=== PATIENT | male | born 1945 | race Caucasian/White ===

== ENCOUNTER → 2019-11-17 13:33 | Outpatient (CLI) | payer MEDICARE, OTHER | END | disposition home or self-care (01) | LOC: D.CT 13:33 | PROVIDERS: ATTEND Family Medicine | DX: R10.11 Right upper quadrant pain (principal) ==

== ENCOUNTER → 2019-12-11 10:39 | Outpatient (CLI) | payer MEDICARE, OTHER | END | disposition home or self-care (01) | LOC: D.US 10:39 | PROVIDERS: ATTEND Internal Medicine Cardiovascular Disease | DX: I65.23 Occlusion and stenosis of bilateral carotid arteries (principal) ==

== ENCOUNTER → 2019-12-17 08:43 | Outpatient (CLI) | payer MEDICARE, OTHER | END | disposition home or self-care (01) | LOC: D.HCCARDIO 08:43 | PROVIDERS: ATTEND Internal Medicine Cardiovascular Disease | DX: I25.10 Atherosclerotic heart disease of native coronary artery without angina pectoris (principal) ==

== ENCOUNTER 2020-01-07 11:09 | Day surgery (SDC) | payer MEDICARE, OTHER ==
[~2020-01-07] VITALS: Ht 193 cm; Wt 87.8 kg
--- NOTE | ~2020-01-07 | HEMODYNAMI ---
PATIENT:JOSE MELISSA JR MEDICAL RECORD: [id number] : 47 LOCATION:DMEÑO ADMISSION DATE: 01/07/20 Generatedon:01/07/202013:32 Patient name: JOSE MELISSA Patient #: [id number] SSN: [id number] : 1945 Date of study: 01/07/2020 Page: Of Hemodynamic Procedure Report Patient Data Patient Demographics Procedure consent was obtained First Name: JOSE Gender: Male Last Name: BELÉN Suffix: [facility] Initial: ARTHUR : 1945 Patient #: [id number] Age: 74 year(s) Race: SSN: [id number] Additional ID: [id number] Contact details Address: [address] [place] [address] State: [place] City: [place] Zip code: [address] Past Medical History Allergies: No known allergies Admission Admission Data Admission Date: 01/07/2020 Admission Time: 11:09 Arrival Date: 01/07/2020 Arrival Time: 13:00 Admit Source: Other Insurance Payor: Medicare [facility] #: [id number] Height (in.): 75.98 BSA: 2.18 (m2) Height (cm.): 193 BMI: 23.36 (kg/m2) Weight (lbs.): 191.8 Weight (kg.): 87 Lab Results Lab Result Date: 01/07/2020 Lab Result Time: 0:00 Biochemistry Name Units Result Min Max BUN mg/dl 16 --(---*)-- 7 18 Creatinine mg/dl 1.3 --(---*)-- 0.6 1.3 eGFR ml/min 57 *-(----)-- 90 120 NONAFRICAN CBC Name Units Result Min Max Hematocrit % 41.5 -*(----)-- 42 54 Hemoglobin g/dl 13.5 --(*---)-- 13.5 17.5 Procedure Procedure Types Cath Procedure Diagnostic Procedure [facility] w/Coronaries Sedation Charges Moderate Sedation 10-24 minutes Procedure Description Procedure Date Procedure Date: 01/07/2020 Procedure Start Time: 13:18 Procedure End Time: 13:28 Procedure Staff Name Function Philipp Roberts MD Performing Physician Tena Galvan RT Monitor Maisha Nunez RT Scrub Ollie Davis RN Nurse Procedure Data Cath Procedure Fluoroscopy Diagnostic fluoroscopy Total fluoroscopy Time: 1.6 time: 1.6 min min Diagnostic fluoroscopy Total fluoroscopy dose: 505 dose: 505 mGy mGy Contrast Material Contrast Material Type Amount (ml) Isovue 300 49 Entry Location Entry Primary Successful Side Size Upsize Upsize Entry Closure [place] ccessful Closure Location (Fr) 1 (Fr) 2 (Fr) Remarks Device Remarks Radial Right 6 Fr Mechanical artery Short Compression Estimated blood loss: 5 ml Diagnostic catheters Device Type Used For End Catheter Placement DIAGNOSTIC [place] 110cm 5 Multi-vessel Fr catheter ([id number]) Angiography Procedure Complications No complications Procedure Medications Medication Administration Route Dosage Oxygen etCO2 Nasal cannula 2 l/min Heparin Flush Bag added to field 2 bags (1000units/500ml NS) 0.9% NaCl I.V. 100 ml/hr Lidocaine 2% added to field 20 Radial Cocktail added to field 1 syringe (Verapamil 2mg/Nitro 400mcg/Heparin 1500units) Fentanyl I.V. 50 mcg Versed I.V. 1 mg Fentanyl I.V. 50 mcg Versed I.V. 1 mg Hemodynamics Rest BSA: 2.18 (m2) HGB: 13.5 (g/dl) O2 Consumption: Estimated: 273.65 (ml/min) O2 Co nsumption indexed: Estimated:125.53 (ml/min/m) Heart Rate: 97 (bpm) Pressure Samples Time Site Value (mmHg) Purpose Heart Use Rate(bpm) 13:21 LV 36/-4,-6 Snapshot 66 Gradients Valve Time Site Site Mean SEP/DFP Peak To Heart Use 1 2 (mmHg) (sec/min) Peak Rate (mmHg) (bpm) Aortic 13:22 LV AO 79 Snapshots Pre Cath Intra NCS Post Cath Vital Signs Time Heart Resp SPO2 etCO2 NIBP (mmHg) Rhythm Pain Sedation Rate (ipm) (%) (mmHg) Status Level (bpm) 13:07:13 99 16 99 0 209/113(147) NSR 0 (11) 10(A) , No pain 13:11:41 86 16 100 33 190/99(152) NSR 0 (11) 10(A) , No pain 13:16:11 73 16 100 0 165/75(136) NSR 0 (11) 9(A) , No pain 13:20:40 88 17 100 9.7 158/53(132) NSR 0 (11) 9(A) , No pain 13:24:58 67 16 100 0 77/42(55) NSR 0 (11) 9(A) , No pain 13:28:53 68 16 100 0 87/52(72) NSR 0 (11) 9(A) , No pain Medications Time Medication Route Dose Verified Delivered Reason Notes E ffectiveness by by 13:09:22 Oxygen etCO2 2 l/min Philipp Ollie Per Nasal Armando Davis RN physician cannula 13:09:30 Heparin Flush added 2 bags Philipp Ollie used for Bag to Armando Davis domestic technician (1000units/500ml field NS) 13:09:38 0.9% NaCl I.V. 100 Philipp Ollie Per ml/hr Armando Davis RN physician 13:09:53 Lidocaine 2% added 20ml Philipp Ollie for local to vial Armando Davis RN anesthetic field 13:10:04 Radial Cocktail added 1 Philipp Ollie used for (Verapamil to syringe Armando Davis domestic technician 2mg/Nitro field 400mcg/Heparin 1500units) 13:12:05 Fentanyl I.V. 50 mcg Philipp Ollie for Armando Davis RN sedation 13:12:11 Versed I.V. 1 mg Philipp Ollie for Armando Davis RN sedation 13:22:44 Fentanyl I.V. 50 mcg Philipp Ollie for Armando Davis RN sedation 13:22:47 Versed I.V. 1 mg Philipp Ollie for Armando Davis RN sedation Procedure Log Time Note 12:31:42 Informed consent obtained and on chart 12:33:30 Arrival Date: 01/07/2020 1:00:00 PM 12:33:56 Admit Source: Other 12:33:59 Insurance Payor : Medicare 12:43:04 Patient Height : 75.98 inches 12:43:08 Patient Weight : 191.8 lbs 12:43:17 Diagnostic Cath Status : Elective 12:43:38 Procedure Status Elective Heart Cath (OP). 12:43:42 Tena Galvan RT(R) sent for patient. Start room use. 12:45:39 Time tracking: Regular hours (M-F 7:00 - 5:00) 12:45:44 Plan of Care:Hemodynamics will remain stable., Cardiac rhythm will remain stable., Comfort level will be maintained., Respiratory function will remain adequate., Patient/ family verbilizes understanding of procedure., Procedure tolerated without complication., Recovers from procedure without complications.. 12:57:07 Patient received from Pre/Post Procedure Room to CCL 2 Alert and oriented. Tansferred to table in Supine position. 12:57:08 Warm blankets applied, and ammon hugger turned on for patient comfort. 12:57:08 Correct patient and procedure confirmed by team. 12:57:08 ECG and BP/O2 sat monitors applied to patient. 13:02:37 Full Disclosure recording started 13:02:51 H&P Date Dictated: 12/10/2019 Within 30 days and on chart., H&P Addendum completed by physician on day of procedure. (MUST COMPLETE FOR ALL OUTPATIENTS). 13:02:52 Pre-procedure instructions explained to patient. 13:02:52 Pre-op teaching completed and patient verbalized understanding. 13:02:53 Family in patients room. 13:02:55 Patient NPO since Midnight. 13:03:03 Patient allergic to No known allergies 13:03:04 Is patient on blood thinner?Yes 13:03:07 ACC The patient was administered the following blood thiners within the last 24 hours: ACCPlavix 13:03:08 Is the patient allergic to Iodine/contrast media? No. 13:03:10 Patient diabetic? No. 13:03:17 IV patent on arrival in right antecubital with 0.9% NaCl at [facility]. 13:03:21 Previous problem with sedation/anesthesia? No ? 13:03:22 Snore? Yes 13:03:22 Sleep apnea? No 13:03:24 Deviated septum? No 13:03:25 Opens mouth fully? Yes 13:03:26 Sticks out tongue? Yes 13:03:27 Airway obstruction? No ? 13:03:30 Dentures? Yes TIGHT 13:04:04 Pre procedure: right dorsailis pedis pulse 1+ Palpable, but thready & weak; easily obliterated 13:04:07 Modified Umair's test Ulnar < 7 seconds 13:04:10 Patient pain scale 0/10 ?. 13:04:57 Right Radial & Right Groin area was prepped with chlora-prep and draped in sterile fashion 13:04:58 Alarms reviewed by R. N. 13:04:59 Sharps counted by scrub and verified by R.N. 13:05:03 Vital chart was started 13:05:07 Baseline sample Acquired. 13:05:14 Rhythm: sinus rhythm 13::40 Lab Result : BUN 16 mg/dl ::40 Lab Result : Creatinine 1.3 mg/dl ::40 Lab Result : eGFR NONAFRICAN 57 ml/min 13::40 Lab Result : Hemoglobin 13.5 g/dl 13::40 Lab Result : Hematocrit 41.5 % 13::43 Lab results completed and on chart. 13:09:22 Oxygen 2 l/min etCO2 Nasal cannula was administered by Ollie Davis RN; Per physician; Verbal order read back and verified. 13:09:30 Heparin Flush Bag (1000units/500ml NS) 2 bags added to field was administered by Ollie Davis RN; used for procedure; Verbal order read back and verified. 13:09:31 Physician arrived 13:09:31 Physician arrived 13::32 --------ALL STOP TIME OUT------ 13::32 Final Timeout: patient, procedure, and site verified with staff and physician. All members of the team are in agreement. 13:09:35 Right Radial & Right Groin site verified by team. 13:09:38 0.9% NaCl 100 ml/hr I.V. was administered by Ollie Davis RN; Per physician; Verbal order read back and verified. 13:09:38 Fire Safety Assessment: A--An alcohol-based skin anteseptic being used preoperatively., C--Open oxygen or nitrous oxide is being used., D--An ESU, laser, or fiber-optic light is being used. 13:09:42 Physical assessment completed. ASA score P 2 - A patient with mild systemic disease as per Philipp Roberts MD. 13:09:52 Sedation plan: IV Moderate Sedation Medication:Versed, Fentanyl 13:09:53 Lidocaine 2% 20ml vial added to field was administered by Ollie Davis RN; for local anesthetic; Verbal order read back and verified. 13:10:04 Radial Cocktail (Verapamil 2mg/Nitro 400mcg/Heparin 1500units) 1 syringe added to field was administered by Ollie Davis RN; used for procedure; Verbal order read back and verified. 13:10:53 3a) 45-59 Moderately reduced kidney function. 13:11:12 Maximum allowable contrast dose (3.7 X eGFR X 0.75)158 ml. 13:12:05 Fentanyl 50 mcg I.V. was administered by Ollie Davis RN; for sedation; Verbal order read back and verified. 13:12:11 Versed 1 mg I.V. was administered by Ollie Davis RN; for sedation; Verbal order read back and verified. 13:17:46 Use device set Radial Dx or PCI 13:17:48 ACIST Syringe (29667) opened to sterile field. 13:17:48 Medline Cath Pack ([id number]) opened to sterile field. 13:17:48 Bag Decanter (2002) opened to sterile field. 13:17:49 ACIST Hand Control (54433) opened to sterile field. 13:17:49 ACIST Manifold (19265) opened to sterile field. 13:17:50 Tegaderm 4 x 4 (1626W) opened to sterile field. 13:17:50 MBrace Wrist Support ([id number]) opened to sterile field. 13:17:51 NEEDLE Cook 21G 4cm Radial (Q72983) opened to sterile field. 13:17:53 SHEATH 6FR RAIN (0122584) opened to sterile field. 13:17:53 EMERALD Guide Wire (694-538) opened to sterile field. 13:17:57 Procedure started. 13:18:01 Local anesthetic to right radial artery with Lidocaine 2% by Philipp Roberts MD.INITIAL ACCESS ONLY 13:18:11 A 6 Fr Short sheath was inserted into the Right Radial artery 13:20:34 A DIAGNOSTIC [place] 110cm 5 Fr catheter (937758) was advanced over the wire and used for Multi-vessel Angiography. 13:21:22 LV hemodynamics recorded. 13::23 LV gram done using BURK 13::27 Injector settings: Ml/sec: 5, Volume: 15, 13::47 EF : 60 % 13::44 Fentanyl 50 mcg I.V. was administered by Ollie Davis RN; for sedation; Verbal order read back and verified. 13::47 Versed 1 mg I.V. was administered by Ollie Davis RN; for sedation; Verbal order read back and verified. 13:23:09 LCA angiography performed. 13::45 Injector settings: Ml/sec: 3, Volume: 6, 13:25:11 RCA angiography performed. 13:25:14 Injector settings: Ml/sec: 3, Volume: 6, 13:25:24 Catheter removed. 13:25:35 ZEPHYR REGULAR TR BAND (288948) opened to sterile field. 13:26:18 Sheath removed intact; hemostasis achieved with Mechanical Compression to the Right Radial artery. 13::22 Procedure ended.(Physican Out) 13:26:54 Fluoroscopy time 01.60 minutes. 13::58 Flurop Dose total: 505 13:26:58 Fluoroscopy dose: 505 mGy 13:27:09 Dose Area Product 25473 mGy/cm. 13:27:29 Contrast amount:Isovue 300 49ml. 13:27:51 Maximum allowable dose exceeded? No. 13:27:52 Sharps counted by scrub and verified by R.N. 13:27:55 [place] band inflated with 10cc of air. 13:27:56 Insertion/operative site no bleeding no hematoma. 13:28:03 Post right radial artery:stable 13:28:04 Post Procedure Pulses reassessed and unchanged 13:28:06 Post procedure rhythm: unchanged. 13:28:09 Estimated blood loss: 5 ml 13:28:10 Post procedure instruction explained to patient.Patient verbalizes understanding. 13:28:11 Patient needs reinforcement of post procedure teaching. 13:28:28 Procedure type changed to Cath procedure, Diagnostic procedure, LHC, LHC w/Coronaries, Sedation Charges, Moderate Sedation 10-24 minutes 13:28:29 Procedure and supply charges have been captured, reviewed, submitted and are correct. 13:28:34 Procedure Complication : No complications 13:28:36 Vital chart was stopped 13:28:38 [facility] Findings: MVD- CABG consult 13:28:40 Operative report dictated upon procedure completion. 13:28:40 See physician's report for complete and final results. 13:28:42 Report given to Pre/Post Procedure Room. 13:28:45 Patient transfered to Pre/Post Procedure Room with Stretcher. 13:28:49 Procedure ended. 13:28:49 Full Disclosure recording stopped 13:28:55 End room use (Document Last) 13:31:13 End room use (Document Last) 13:31:38 End room use (Document Last) Device Usage Item Name Manufacture Quantity Catalog Hospital Part Current Minima l Lot# / Number Charge Number Stock Stock Serial# Code ACIST Acist 1 03692 462256 [id number] 201660 20 Syringe Medical (56334) Systems Inc Medline Medline 1 [id number] 07468 047574 5 Cath Pack ([id number]) Bag Microtek 1 2001S 711070 43341 [id number] 5 Decanter Medical Inc. () ACIST Hand Acist 1 81412 239074 923420 834627 5 Control Medical (82466) Systems Inc ACIST Acist 1 89888 460579 539650 767827 5 Manifold Medical (19562) Systems Inc Tegaderm 4 3M 1 1626W 610404 590237 478478 5 x 4 (1626W) MBrace Advanced 1 140-0250-00 492500 16007 660588 5 Wrist Vascular Support Dynamics ([id number]) NEEDLE [employer] Medical 1 O40000 003126 681898 836091 5 21G 4cm Radial (G62631) SHEATH 6FR Cardinal 1 1554330 246208 1364841 389321 5 [facility] (9774256) EMERALD Cardinal 1 502-874 280715 723524 889627 5 Guide Wire Health (580-394) DIAGNOSTIC Terumo 1 40-1331 362335 744585 343539 5 [place] 110cm 5 Fr catheter (131918) ZEPHYR Cardinal 1 664477 980696 [id number] 109403 5 REGULAR TR Health BAND (258231) Signature Audit [place] Stage Time Signature Unsigned Intra-Procedure 01/07/2020 Tena Galvan 1:31:13 PM RT(R) Intra-Procedure 01/07/2020 Ollie Davis 1:31:38 PM RN Intra-Procedure 01/07/2020 Philipp Roberts MD 1:32:02 PM Signatures Performing Physician : Signature : Philipp Roberts MD Date : Time : Monitor : Tena Galvan RT Signature : Date : Time : Nurse : Ollie Davis RN Signature : Date : Time : [facility] [address] [place] [address]
[2020-01-07] MEDS ORDERED: PRAVACHOL40 MG PO (11:50)
[2020-01-07] MEDS ORDERED: PRAVASTATIN SOD10 MG PO (11:50)
[2020-01-07] MEDS ORDERED: PLAVIX75 MG PO (11:50)
[2020-01-07] MEDS ORDERED: PEPCID AC20 MG PO (11:51)
[2020-01-07 12:10] VITALS: BP 209/110; Ht 193 cm; Wt 87.8 kg
[2020-01-07 12:23] LABS: BASOPHILS 0.9 % (0-2); EOSINOPHILS 7.7 % (0-7); HEMATOCRIT 41.5 % (42.0-54.0); HEMOGLOBIN 13.5 g/dL (13.5-17.5); IMMATURE GRANULOCYTES 0.2 % (0-5); MCH 31.6 pg (26.0-34.0); MCHC 32.5 g/dL (31.0-37.0); MCV 97.2 fL (80.0-100.0); MEAN PLATELET VOLUME 9.6 fL (7.4-10.4); MONOCYTES 8.9 % (2-11); NEUTROPHILS 49.3 % (40-80); PLATELET COUNT 198 10x3/uL (130-400); RBC 4.27 10x6/uL (4.20-6.10); RDW 13.9 % (11.5-14.5); WBC 5.3 10x3/uL (4.8-10.8)
[2020-01-07 12:43] LABS: ANION GAP 9.6 mmol/L (8-16); CALCIUM 8.9 mg/dL (8.5-10.1); CARBON DIOXIDE 28.3 mmol/L (21.0-32.0); CHOL - HDL RATIO 3.3 ratio (2.3-4.9); CREATININE - SERUM 1.3 mg/dL (0.6-1.3); POTASSIUM - SERUM 3.9 mmol/L (3.5-5.1)
--- NOTE | 2020-01-07 13:41 | NUR ---
PT ARRIVED BY STRETCHER. PLACED ON MONITORS. ASSESSMENT COMPLETED. VSS AT THIS TIME. CALL LIGHT WITHIN REACH.
--- NOTE | 2020-01-07 13:56 | NUR ---
RIGHT WRIST Z BAND IN PLACE. NO BLEEDING/HEMATOMA NOTED. VSS. CALL LIGHT WITHIN REACH. PT RESTING COMFORTABLY.
--- NOTE | 2020-01-07 14:30 | NUR ---
2cc OF AIR REMOVED FROM Z BAND. NO BLEEDING/HEMATOMA NOTED. CALL LIGHT WITHIN REACH. VSS AT THIS TIME. WILL CONTINUE TO MONITOR.
--- NOTE | 2020-01-07 14:45 | NUR ---
3cc OF AIR REMOVED FROM Z BAND. NO BLEEDING/HEMATOMA NOTED. VSS AT THIS TIME. PT DENIES NAUSEA/PAIN. GAVE HIM SOME COFFEE AND HE BROUGHT SOME COOKIES TO EAT. WILL CONTINUE TO MONITOR.
--- NOTE | 2020-01-07 15:00 | NUR ---
5cc OF AIR REMOVED FROM Z BAND. NO BLEEDING/HEMATOMA NOTED. CALL LIGHT WITHIN REACH. VSS AT THIS TIME.
--- NOTE | 2020-01-07 15:30 | NUR ---
Z BAND REMOVED AND DRESSING APPLIED. NO BLEEDING OR HEMATOMA NOTED. RIGHT WRIST BRACE IN PLACE. PIV D/C'D WITH CATH TIP INTACT. TOLERATED WELL. PT INSTRUCTED TO GET UP AND DRESSED AT THIS TIME.
--- NOTE | 2020-01-07 15:35 | NUR ---
PT AMBULATED TO RESTROOM. VOIDED WITHOUT DIFFICULTY. STEADY GAIT NOTED. PT WAITING ON DR. CONNORS TO ROUND TO SPEAK WITH PT.
--- NOTE | 2020-01-07 15:55 | NUR ---
DR. CONNORS ROUNDED AND SPOKE WITH PT. PT HAS APPT WITH DR. CONNORS TOMORROW IN THE [facility] AND THEY WILL DISCUSS PLAN OF CARE.
--- NOTE | 2020-01-07 16:00 | NUR ---
DISCUSSED DISCHARGE INSTRUCTIONS WITH PT. HE VOICED UNDERSTANDING. RIGHT WRIST DRESSING C/D/I. NO S/S OF HEMATOMA NOTED. PT TAKEN OUT TO VEHICLE BY WHEELCHAIR. NO S/S OF DISTRESS NOTED. ALL BELONGINGS AND PAPERWORK IN HAND.
== END 2020-01-07 16:00 | disposition home or self-care (01) ==
LOC: D.CATH 11:09
PROVIDERS: ATTEND Internal Medicine Cardiovascular Disease
DX: I25.119 Atherosclerotic heart disease of native coronary artery with unspecified angina pectoris (principal); R94.39 Abnormal result of other cardiovascular function study; I73.9 Peripheral vascular disease, unspecified; I71.4 Abdominal aortic aneurysm, without rupture

== ENCOUNTER 2020-06-09 18:06 | Emergency (ER) | payer MEDICARE, OTHER ==
[~2020-06-09] VITALS: Ht 193 cm; Wt 81.8 kg
[~2020-06-09 18:06] MED LIST: AMIODARONE HCL200 MG PO; BAYER CHEWABLE81 MG PO; HEMOCYTE PLUS C1 CAP PO; IBUPROFEN600 MG PO; LISINOPRIL5 MG PO; LOPRESSOR25 MG PO; LOW DOSE ASPIRI81 M1 PO; PEPCID AC20 MG PO; PERCOCET 5-3251 TAB PO; PLAVIX75 MG PO; PRAVACHOL40 MG PO; PRAVASTATIN SOD10 MG PO; PROTONIX40 MG PO; TOPROL XL100 MG PO; VIBRAMYCIN 100100 MG PO
[2020-06-09 18:10] VITALS: Ht 193 cm; Wt 81.8 kg
[2020-06-09 19:12] VITALS: BP 172/93
== END 2020-06-09 19:12 | disposition home or self-care (01) ==
LOC: D.ER 18:06
DX: S61.012A Laceration without foreign body of left thumb without damage to nail, initial encounter (principal); I10 Essential (primary) hypertension; W45.8XXA Other foreign body or object entering through skin, initial encounter; Y93.9 Activity, unspecified; Y92.9 Unspecified place or not applicable; Z79.01 Long term (current) use of anticoagulants